=== PATIENT | male | born 1970 | race Caucasian/White ===

== ENCOUNTER 2024-07-04 03:32 | Emergency (ER) | payer OTHER, SELFPAY ==
[2024-07-04 03:38] VITALS: BP 139/92
[2024-07-04 03:39] VITALS: BP 139/92
[2024-07-04 03:48] VITALS: BMI 30.1
[2024-07-04 04:00] VITALS: BP 141/91
--- NOTE | 2024-07-04 04:06 | ED.GENMED ---
History of Present Illness
General
Chief Complaint: Dizziness
Source: patient and family (son)
Time Seen by Provider: 07/04/24 04:06
History of Present Illness
History of Present Illness:
A visually somnolent 54-year-old male with a PMH of Crohn's disease presents to the emergency department for dizziness x 1 hour. The patient states about 1 hour ago he developed sudden onset dizziness and nausea upon waking from sleep. He states
the dizziness is a spinning sensation and that light makes it worse. He states 1 similar episode 2 months ago with similar symptoms which resolved within 30 minutes to an hour. He also admits to mild chest tightness which he describes as 'just
strange'. He states that the spinning sensation makes him feel nauseous but denies any vomiting. He states that he had tea before bed but has not drank anything today. He states he is to 'busy' to drink water every day.The patient currently admits
to training for half marathon which is happening in the next 2 weeks. He denies diplopia, floaters, flashers, ear fullness, tinnitus, headache, chest pain, fever, chills.
Past History
Past History
ED Past Medical History: Other (Crohn's)
ED Past Surgical History: Other (Tendon repair)
Social History
Tobacco: Non-smoker
Alcohol: None
Drug: None
Family History
Family History: Cancer (Prostate)
Review of Systems
Review of Systems
Allergies reviewed?: Yes
All Other Systems: ROS reviewed and negative except as documented in HPI and ROS
Phy Exam
General Physical Exam
General Presentation: well appearing
General age: appears stated age
General Skin: warm
General Habitus: normal
General Mental: other (tired)
General Hydration: appears well hydrated
ENT Exam
Additional ENT: No rotary horizontal or vertical nystagmus noted.
Eye Exam
Eye Exam: PERRL and EOMI
Cardiovascular Exam
Cardiovascular Exam: no edema, no gallop, no murmur, normal peripheral pulses and bradycardia
Pulmonary Exam
Pulmonary Exam: lungs clear, no respiratory distress, no rales, no crackles, no rhonchi, no wheezing and no cough
Neurological Exam
Neurological Exam: alert and oriented x3
Musculoskeletal Exam
Musculoskeletal Exam: full ROM
Skin Exam
Skin Exam: normal color, warm/dry and no rash
Psychiatric Exam
Psychiatric Exam: labile
Course
Orders/Labs/Results
Orders:
Orders
07/04/24 03:36
EKG [Electrocardiogram (*1)] Urgent
Reason for Study: Vertigo / Dizzy
EKG- Treatment ONCE
07/04/24 03:56
Complete Blood Count/With Diff Urgent
Comprehensive Metabolic Panel Urgent
Troponin I Urgent
07/04/24 05:47
0.9% Sodium Chloride 500 ml [Nss] 1,000 ml IV ONCE
07/04/24 05:49
0.9% Sodium Chloride 1000 ml [Nss] 1,000 ml IV BOLUS
07/04/24 06:37
Urinalysis Reflex To Culture Urgent
Date Specimen was Collected: 07/04/24
Time Specimen was Collected: 06:34
Urine Microscopic Reflex Cult Urgent
Abnormal Lab Results
07/04/24 07/04/24
03:56 06:37
Neutrophils % 37.0 L %
(42.2-75.2)
Monocytes % 10.3 H %
(1.7-9.3)
Glucose 122 H mg/dl
(70-99)
Calcium 10.5 H mg/dl
(8.4-10.2)
Ur Occult Blood Reflex 4+ A
(Negative)
Urine RBC 3-6 A /HPF
(0-2)
07/04/24 03:56
07/04/24 03:56
Vital Signs
Initial and Last Documented VS:
Initial Vital Signs
Temp Pulse Resp BP Pulse Ox
97.8 F 54 12 139/92 100
07/04/24 03:38 07/04/24 03:38 07/04/24 03:38 07/04/24 03:38 07/04/24 03:38
Last Documented Vital Signs
Temp Pulse Resp BP Pulse Ox
97.8 F 52 15 138/78 98
07/04/24 03:38 07/04/24 06:18 07/04/24 06:18 07/04/24 07:43 07/04/24 07:43
MDM/Problems Addressed
Differential Diagnosis Includes:
Peripheral vertigo,Orthostatic hypotension, micturition hypotension, dehydration, stroke, GA
*Critical Care Note
Total Time (30-74mins, 75-104mins- exclusive of procedures): Not Applicable
ED Attending Note
-
Portions of this chart may have been created with voice recognition software.� Occasional wrong word or��sound alike� substitutions may have occurred due to the inherent limitations of voice recognition software.
Discharge Plan
Departure
Patient Disposition: Home (Routine Discharge)
Date of Disposition: 07/04/24
Time of Disposition: 07:08
Patient with high blood pressure during this ER visit?: Yes
Condition: Good
Discharge Problem:
Dizziness, Acute dehydration
Instructions: Dizziness, BLOOD PRESSURE
Referrals:
[facility] [Outside]
Ricardor,Laz, DO [Active] -
Activity Restrictions/Additional Instructions:
It was a pleasure meeting you and taking part in your care. We hope for your continued healing and wellness.
Please read discharge instructions in their entirety. However, they are for general education and may not describe your exact diagnosis at discharge. Information on your ER visit and medical conditions were discussed with you along with appropriate
follow up information...
If indicated, please take your medications as instructed and indicated on discharge paperwork.
Please schedule a follow up appointment as directed. Call to schedule an appointment
Please return to the emergency department with ANY change in, persisting, or worsening of symptoms. If any of your symptoms do not improve, or persist, or become more severe within 6-12 hours, please return to the emergency department for further
care.
Please return to the emergency department if you develop a headache, neck pain/stiffness, fever greater than 100.4F, chest pain, shortness of breath, persistent nausea, vomiting, slurred speech, difficulty walking, numbness/tingling, weakness, signs
of infection or any other symptoms that are worrisome to you.
If you have any questions or concerns please do not hesitate to call the Hospital at or E-mail me directly at [email or web address]
Interventions
Interventions:
*Risk Screen - Suicide Last Done: 07/04/24 03:38
*General Assessment Last Done: 07/04/24 03:38
*Neglect/Abuse Screening Last Done: 07/04/24 03:38
ED- Fall Risk Assessment Last Done: 07/04/24 03:48
*ED COVID-19 Vaccine History Last Done: 07/04/24 03:48
*Nursing Disposition Last Done: 07/04/24 08:45
ED- Neurological Assessment Last Done: 07/04/24 03:48
ED- Cardiac Assessment Last Done: 07/04/24 03:48
ED Swallowing Screen Last Done: 07/04/24 03:55
Discharge Date and Time
Discharge Date/Time: 07/04/24 08:45
Print Language: CROATIAN
[2024-07-04 04:10] LABS: % Basophils 0.5 % (0-2); % Eosinophils 2.7 % (0-6); % Immature Granulocytes 0.2 % (0-0.5); % Lymphocytes 49.3 % (20.5-51.1); % Monocytes 10.3 % (1.7-9.3); Absolute Eosinophils 0.2 10^3/uL (0-0.7); Absolute Lymphocytes 2.9 10^3/uL (1.2-3.4); Absolute Monocytes 0.6 10^3/uL (0.1-0.6); Absolute Neutrophils 2.2 10^3/uL (1.4-6.5); Hematocrit 44.2 % (39.0-52.0); Hemoglobin 15.5 g/dL (13.0-18.0); Mean Corp Hgb Conc. 35.1 g/dL (33.0-37.0); Mean Corpuscular Hgb 29.3 pg (27.0-31.0); Mean Corpuscular Volume 83.6 fL (80.0-94.0); Mean Platelet Volume 10.4 fL (7.4-10.4); Nucleated Red Blood Cells % 0 % (-); Platelet Count 226 10^3/uL (130-400); Red Blood Cell Count 5.29 10^6/uL (4.70-6.10); Red Cell Dist. Width 13.4 % (11.5-14.5); White Blood Cell Count 5.9 10^3/uL (4.8-10.8)
[2024-07-04 04:26] LABS: ALT (SGPT) 30 U/L (0-50); AST (SGOT) 33 U/L (17-59); Albumin 4.9 g/dl (3.5-5.0); Alkaline Phosphatase 88 U/L (38-126); Blood Urea Nitrogen 19 mg/dl (9-20); Calcium 10.5 mg/dl (8.4-10.2); Carbon Dioxide 30 mmol/L (22-30); Chloride 100 mmol/L (98-107); Estimated Creatinine Clearance 113 ml/min; Glucose 122 mg/dl (70-99); Sodium 142 mmol/L (135-145); Total Bilirubin 0.4 mg/dl (0.2-1.3); Total Protein 7.5 g/dl (6.3-8.2); eGFR > 60.00
[2024-07-04 04:38] LABS: Troponin I < 0.012 ng/ml
[2024-07-04 05:00] VITALS: BP 131/76
[2024-07-04] MEDS: NSS 1000 IV (05:48)
[2024-07-04 06:18] VITALS: BP 133/86
[2024-07-04 07:07] LABS: Urine Albumin Negative (Neg - Trace); Urine Bilirubin Negative (Negative); Urine Character Clear (Clear); Urine Color Yellow; Urine Glucose Negative (Negative); Urine Ketone Negative (Negative); Urine Leukocyte Negative (Negative); Urine Nitrite Negative (Negative); Urine Occult Blood 4+ (Negative); Urine Specific Gravity 1.015 (<1.030); Urine Urobilinogen Negative (Neg - 1+)
[2024-07-04 07:43] VITALS: BP 138/78
[2024-07-04 07:50] LABS: Urine Mucus Few
[2024-07-04 07:51] LABS: Urine Amorphous Seen; Urine Urothelial Cell 0-2 /LPF (FEW); Urine White Cell 0-2 /HPF (0-5)
== END 2024-07-04 08:45 | disposition home or self-care (01) ==
LOC: EMR 03:32
PROVIDERS: EMERGENCY PHYSICIAN Student in an Organized Health Care Education/Training Program
DX: E86.0 Dehydration (principal); R42 Dizziness and giddiness; R07.89 Other chest pain
CPT/HCPCS: 99284; 96360; 80053; 81003; 81015; 84484; 85025; 93005

== ENCOUNTER → 2024-07-30 08:07 | Outpatient (REF) | payer OTHER, SELFPAY | LOC: RAD 08:07 | PROVIDERS: ATTENDING PHYSICIAN Urology | DX: C61 Malignant neoplasm of prostate (principal) | CPT/HCPCS: 71260; 74177; Q9967 ==

== ENCOUNTER → 2024-09-11 08:31 | Outpatient (REF) | payer OTHER, SELFPAY | LOC: RAD 08:31 | PROVIDERS: ATTENDING PHYSICIAN Family Medicine | DX: E04.1 Nontoxic single thyroid nodule (principal) | CPT/HCPCS: 76536 ==

== ENCOUNTER 2025-01-23 22:47 | Emergency (ER) | payer OTHER, SELFPAY ==
[2025-01-23 22:49] VITALS: BP 135/90
--- NOTE | 2025-01-24 00:23 | ED.GENMED ---
History of Present Illness
General
Chief Complaint: Facial Problem
Source: patient
Exam Limitations: none
Time Seen by Provider: 01/23/25 23:48
Nursing documentation reviewed up to this point in time: agreed with
History of Present Illness
History of Present Illness:
Patient without any significant past medical history, presents to ED secondary to worsening left facial numbness and inability to fully close his left eye, noted this morning. In addition, patient reports mild left-sided headache. Patient recently
completed course of Augmentin secondary to soars noted inside his mouth, which now has resolved. Denies previous history of similar symptoms. Denies dizziness. Denies difficulty with speech. Denies loss of sensation or weakness. Denies
difficulty with ambulation. Denies previous history of similar symptoms.
Past History
Past History
ED Past Medical History: Other (Crohn's)
ED Past Surgical History: Other (Tendon repair)
Social History
Tobacco: Non-smoker
Alcohol: None
Drug: None
Family History
Family History: Cancer (Prostate)
Review of Systems
Review of Systems
Allergies reviewed?: Yes
All Other Systems: ROS reviewed and negative except as documented in HPI and ROS
Constitutional: Reports no symptoms
Cardiac: Reports no symptoms
ABD/GI: Reports no symptoms
Musculoskeletal: Reports no symptoms
Skin: Reports no symptoms
Neurological: Reports numbness and other (Inability to close eye)
Phy Exam
Physical Exam
Physical Exam:
Physical Exam
General: mild distress, not acutely ill. afebrile
Head: nc/at. eomi
Neck: supple. normal range of motion.
Heart: s1/s2 regular rate and rhythm
Lungs: no acute respiratory distress. clear bilaterally
Abdomen: normal bowel sounds. not tender.
Neuro: alert and oriented x 3. left facial droop noted, with decreased sensation along left cheek and inability to fully close left eye. left eyebrow unable to be raised fully.
Skin: no rash
Psychiatric: well kept. interactive and cooperative
Extremities: no edema. no calf tenderness.
Course
Orders/Labs/Results
Orders:
Orders
01/24/25 00:11
CT Head W/o Iv Contrast Urgent
Comment:
Reason For Exam: left facial numbness with headache
01/24/25 00:13
Prednisone [Deltasone] 60 mg PO NOW STA
01/24/25 00:19
Valacyclovir HCl [Valtrex] 1,000 mg PO NOW STA
01/24/25 00:26
Basic Metabolic Panel Urgent
Complete Blood Count/No Diff Urgent
Lyme Progressive Urgent
Magnesium Urgent
TSH Urgent
01/24/25 00:31
Cyanocobalamin 1,000 mcg IM NOW STA
Abnormal Lab Results
01/24/25
00:26
RBC 4.55 L 10^6/uL
(4.70-6.10)
Hct 37.9 L %
(39.0-52.0)
Creatinine 0.6 L mg/dL
(0.7-1.3)
Glucose 156 H mg/dl
(70-99)
01/24/25 00:26
01/24/25 00:26
Vital Signs
Initial and Last Documented VS:
Initial Vital Signs
Temp Pulse Resp BP Pulse Ox
98.1 F 64 18 135/90 100
01/23/25 22:49 01/23/25 22:49 01/23/25 22:49 01/23/25 22:49 01/23/25 22:49
Last Documented Vital Signs
Temp Pulse Resp BP Pulse Ox
98.1 F 68 18 124/73 97
01/23/25 22:49 01/24/25 01:41 01/24/25 01:41 01/24/25 01:41 01/24/25 01:41
MDM/Problems Addressed
MDM/Problems Addressed:
CT head report reviewed and discussed with patient and spouse.
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 As lesions noted in oropharynx, difficult to potentially exclude possible herpes infection. As such along with left facial symptoms, moderate, patient will be
started on prednisone along with Valtrex, with recommendation to follow-up with PCP for reevaluation next week. Patient otherwise is afebrile, hemodynamically stable, and without any difficulty ambulating, at time of discharge, to the care of his
spouse.
Lyme titer pending
*Critical Care Note
Total Time (30-74mins, 75-104mins- exclusive of procedures): Not Applicable
ED Attending Note
-
Portions of this chart may have been created with voice recognition software.� Occasional wrong word or��sound alike� substitutions may have occurred due to the inherent limitations of voice recognition software.
Discharge Plan
Departure
Patient Disposition: Home (Routine Discharge)
Date of Disposition: 01/24/25
Time of Disposition: 01:29
Patient with high blood pressure during this ER visit?: Yes
Condition: Fair
Discharge Problem:
Barbour's palsy
Instructions: Barbour's Palsy (DC)
Prescriptions:
New
prednisone 20 mg tablet
60 mg PO DAILY 6 Days Qty: 18 0RF
valacyclovir [Valtrex] 1 gram tablet
1,000 mg PO Q8H 6 Days Qty: 18 0RF
Referrals:
Samreen Franks DO [Family Provider] -
Activity Restrictions/Additional Instructions:
As discussed, please follow-up with your primary care physician for reevaluation next week. Your prescriptions have been sent electronically to [facility] in [place]
Interventions
Interventions:
*Risk Screen - Suicide Last Done: 01/23/25 22:49
*Neglect/Abuse Screening Last Done: 01/23/25 22:49
*Nursing Disposition Last Done: 01/24/25 01:41
ED- Neurological Assessment Last Done: 01/23/25 23:00
ED-Skin Assessment Last Done: 01/23/25 23:00
Discharge Date and Time
Discharge Date/Time: 01/24/25 01:42
Print Language: HEBREW
[2025-01-24] MEDS: VALTREX 1000 MG PO (00:34)
[2025-01-24] MEDS: DELTASONE 60 MG PO (00:34)
[2025-01-24 00:40] LABS: Hematocrit 37.9 % (39.0-52.0); Hemoglobin 13.4 g/dL (13.0-18.0); Mean Corp Hgb Conc. 35.4 g/dL (33.0-37.0); Mean Corpuscular Hgb 29.5 pg (27.0-31.0); Mean Corpuscular Volume 83.3 fL (80.0-94.0); Mean Platelet Volume 9.5 fL (7.4-10.4); Platelet Count 284 10^3/uL (130-400); Red Blood Cell Count 4.55 10^6/uL (4.70-6.10); Red Cell Dist. Width 13.1 % (11.5-14.5); White Blood Cell Count 5.6 10^3/uL (4.8-10.8)
[2025-01-24] MEDS: CYANOCOBALAMIN 1000 MCG IM (00:44)
[2025-01-24 00:50] LABS: Blood Urea Nitrogen 17 mg/dl (9-20); Calcium 9.5 mg/dl (8.4-10.2); Carbon Dioxide 28 mmol/L (22-30); Chloride 107 mmol/L (98-107); Glucose 156 mg/dl (70-99); Sodium 140 mmol/L (135-145); eGFR > 60.00
[2025-01-24 01:21] LABS: TSH 0.87 uIU/ml (0.47-4.68)
[2025-01-24 01:41] VITALS: BP 124/73
[2025-01-24 13:11] LABS: Lyme Antibody Screen, EIA Negative (Negative)
== END 2025-01-24 01:42 | disposition home or self-care (01) ==
LOC: EMR 22:47
PROVIDERS: EMERGENCY PHYSICIAN Emergency Medicine; FAMILY PHYSICIAN Family Medicine
DX: G51.0 Bell's palsy (principal); R51.9 Headache, unspecified; R03.0 Elevated blood-pressure reading, without diagnosis of hypertension; K50.90 Crohn's disease, unspecified, without complications; Z86.16 Personal history of COVID-19
CPT/HCPCS: 99284; 96372; 70450; 80048; 83735; 84443; 85027; 86618

== ENCOUNTER 2025-08-24 11:32 | Emergency (ER) | payer OTHER, SELFPAY ==
[2025-08-24 11:33] VITALS: BP 123/89
--- NOTE | 2025-08-24 11:50 | ED.GENMED ---
History of Present Illness
General
Chief Complaint: Musculo-Skeletal Complaint
Time Seen by Provider: 08/24/25 11:47
History of Present Illness
History of Present Illness:
55-year-old male without significant past medical history presenting for right first digit pain. Patient reports yesterday he was trying to catch his countertop, hyperextended his finger with subsequent pain at the MCP region. Denies any crush
injury. Is able to range the finger. Denies numbness. Denies additional acute medical complaints
Past History
Past History
ED Past Medical History: Other (Crohn's)
ED Past Surgical History: Other (Tendon repair)
Social History
Tobacco: Non-smoker
Alcohol: None
Drug: None
Family History
Family History: Cancer (Prostate)
Phy Exam
Physical Exam
Physical Exam:
General: Well-appearing, no clinical signs of dehydration, nontoxic and in no acute distress
HEENT: protecting airway
Neck: appears supple
CV: Normal heart rate
Resp: No accessory muscle use, no increased work of breathing
Abd: No distention
Extremities: No obvious deformity to the right first digit, however there is some mild swelling and pain on palpation to the MCP region. Range of motion grossly intact. No erythema or warmth.
Neuro: alert, no focal neurologic deficit
: deferred
Rectal: deferred
Psych: Normal affect
Skin: Intact
Course
Orders/Labs/Results
Orders:
Orders
08/24/25 11:49
Hand, Right 3 View [CR Hand - Right Min 3 Views] Urgent
Comment:
Reason For Exam: 1st MCP pain, hyperextension
Vital Signs
Initial and Last Documented VS:
Initial Vital Signs
Temp Pulse Resp BP Pulse Ox
98.2 F 81 16 123/89 97
08/24/25 11:33 08/24/25 11:33 08/24/25 11:33 08/24/25 11:33 08/24/25 11:33
Last Documented Vital Signs
Temp Pulse Resp BP Pulse Ox
98.2 F 81 16 123/89 97
08/24/25 11:33 08/24/25 11:33 08/24/25 11:33 08/24/25 11:33 08/24/25 11:53
MDM/Problems Addressed
MDM/Problems Addressed:
55-year-old male presenting for right first digit pain after hyperextension injury. Vitals are normal.
On exam, patient resting comfortably, no acute distress. Generalized inflammation to the right first digit with tenderness over the right first MCP joint. Possible tendinous injury given mechanism of injury. No obvious deformity. Plan for x-ray
to evaluate for any signs of fracture or malalignment. Patient declining pain medication at this time.
12:45 - No x-ray findings concerning for fracture or malalignment. Continue to suspect tendinous sprain. Feel stable for discharge, placed in a splint. Advised continued supportive therapy and outpatient orthopedic follow-up if symptoms persist.
Return precautions discussed and patient verbalized understanding
*Pulse Oximetry
SaO2: 97
Oxygen Mode of Delivery: Room air
Patient hypoxic: no
*Critical Care Note
Total Time (30-74mins, 75-104mins- exclusive of procedures): Not Applicable
ED Attending Note
-
Portions of this chart may have been created with voice recognition software.� Occasional wrong word or��sound alike� substitutions may have occurred due to the inherent limitations of voice recognition software.
Discharge Plan
Departure
Prescriptions:
No Action
prednisone 20 mg tablet
60 mg PO DAILY 6 Days Qty: 18 0RF
valacyclovir [Valtrex] 1 gram tablet
1,000 mg PO Q8H 6 Days Qty: 18 0RF
Referrals:
Samreen Franks DO [Family Provider, Family Practice]
Interventions
Interventions:
*General Assessment Last Done: 08/24/25 12:23
*Neglect/Abuse Screening Last Done: 08/24/25 11:35
[facility] Risk Assessment Tool Last Done: 08/24/25 12:23
*Risk Screen - Suicide (C-SSRS) Last Done: 08/24/25 11:33
ED-Musculoskeletal Assessment Last Done: 08/24/25 12:22
Discharge Date and Time
Print Language: [place]
== END 2025-08-24 13:15 | disposition home or self-care (01) ==
LOC: EMR 11:32
PROVIDERS: EMERGENCY PHYSICIAN Student in an Organized Health Care Education/Training Program; FAMILY PHYSICIAN Family Medicine
DX: S66.011A Strain of long flexor muscle, fascia and tendon of right thumb at wrist and hand level, initial encounter (principal); X50.1XXA Overexertion from prolonged static or awkward postures, initial encounter; K50.90 Crohn's disease, unspecified, without complications
CPT/HCPCS: 99283; 29125; 73130